=== PATIENT | female | born 1990 | race Caucasian/White ===

== ENCOUNTER → 2019-02-17 | Outpatient (CLI) | payer OTHER ==
--- NOTE | 2019-02-18 07:06 | US ---
EXAMINATION TYPE: US transvaginal DATE OF EXAM: 02/17/2019 COMPARISON: NONE CLINICAL HISTORY: N92.1 Excessive and frequent menstruation. TECHNIQUE: Transvaginal (TV). Date of LMP: 03/05/19 EXAM MEASUREMENTS: Uterus: 8.8 x 3.9 x 6.0 cm Endometrial Stripe: 0.4 cm Right Ovary: 5.3 x 4.2 x 4.1 cm Left Ovary: 2.9 x 2.5 x 1.5 cm 1. Uterus: Anteverted, fibroid measuring 1.4 x 1.3 x 1.6cm 2. Endometrium: wnl 3. Right Ovary: ovarian cyst with debris and possible solid component measuring 5.1 x 4.0 x 3.3cm 4. Left Ovary: wnl 5. Bilateral Adnexa: wnl 6. Posterior cul-de-sac: small amount of ff anterior to uterus IMPRESSION: 1. Leiomyomatous change of the uterus. 2. Complex right ovarian cystic lesion with debris and possible solid component. Follow-up in 6 weeks is advised as well as clinical correlation.
== END | disposition home or self-care (01) ==
LOC: RADUSWWP 16:06
PROVIDERS: ATTEND Family Medicine
DX: N83.201 Unspecified ovarian cyst, right side (principal); D25.9 Leiomyoma of uterus, unspecified; N92.1 Excessive and frequent menstruation with irregular cycle
CPT/HCPCS: 76830

== ENCOUNTER → 2019-03-31 | Outpatient (CLI) | payer OTHER ==
--- NOTE | 2019-03-31 12:46 | US ---
EXAMINATION TYPE: US transvaginal DATE OF EXAM: 03/31/2019 COMPARISON: 02/17/2019 CLINICAL HISTORY: 28-year-old female N83.20 Unspecified ovarian cysts. Follow up right ovarian cyst, right pelvic pain, irregular cycles, 2, para 1, miscarriage 1, history of . TECHNIQUE: Transvaginal only per ordering physician. Date of LMP: 1 week ago FINDINGS: EXAM MEASUREMENTS: Uterus: 7.1 x 3.5 x 6.0 cm Endometrial Stripe: right horn 0.1cm, left horn 0.2cm Right Ovary: 3.6 x 1.8 x 1.7 cm Left Ovary: 6.3 x 3.7 x 3.9 cm 1. Uterus: Retroverted with 2 endometrial horns. Mildly heterogeneous myometrium, hypoechoic lesion seen on previous exam at the anterior fundus not seen on today's study 2. Endometrium: wnl 3. Right Ovary: multiple follicles 4. Left Ovary: 5.4 x 3.3 x 3.0cm cyst. 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 Previously m easured 5.1 x 4.0 x 3.3 cm. 5. Bilateral Adnexa: wnl 6. Posterior cul-de-sac: wnl IMPRESSION: 1. Left ovarian cyst redemonstrated currently measuring 5.4 x 3.3 cm versus 5.1 x 4.0 cm, previously. Overall, not significantly changed. Currently, there is suggestion of an internal cumulus oophorus s uggesting a dominant follicle. However, it is unusual in that it has not involuted from the prior ex am. Additional 6-8 week follow-up recommended to reassess. 2. 2 endometrial horns. 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
== END | disposition home or self-care (01) ==
LOC: RADUSWWP 10:57
PROVIDERS: ATTEND Family Medicine
DX: N83.201 Unspecified ovarian cyst, right side (principal)
CPT/HCPCS: 76830

== ENCOUNTER → 2019-05-19 | Outpatient (CLI) | payer OTHER ==
--- NOTE | 2019-05-19 11:27 | US ---
EXAMINATION TYPE: US transvaginal DATE OF EXAM: 05/19/2019 COMPARISON: US 2019 CLINICAL HISTORY: N83.29 OVARIAN CYSTS,N92.1 EXCESSIVE FREQ MENSES. Follow up ovarian cysts, right pe lvic pain, irregular cycles, 2, para 1, miscarriage 1, history of . TECHNIQUE: Transvaginal exam only per ordering physician. Date of LMP: Patient unsure of LMP EXAM MEASUREMENTS: Uterus: 7.4 x 3.9 x 6.4 cm Endometrial Stripe: 1.8 cm Right Ovary: 4.6 x 2.2 x 2.1 cm Left Ovary: 4.3 x 2.2 x 2.2 cm 1. Uterus: retroverted with 2 endometrial horns, mildly heterogeneous without any definite lesions s een at this time 2. Endometrium: wnl 3. Right Ovary: multiple follicles, multiple calcifications, 4. Left Ovary: multiple follicles, multiple calcifications 5. Bilateral Adnexa: wnl 6. Posterior cul-de-sac: small amount of free fluid Transverse images show deviated endometrial canals possible arcuate type uterus similar to prior. Tin y amount free fluid in pelvic cul-de-sac. Both ovaries are seen. Multiple prominent follicles identified bilaterally. Interval resolution of la rge cystic lesion left ovary. IMPRESSION: Interval resolution of large cystic lesion left ovary. Multiple follicles redemonstrated bilaterally.
== END | disposition home or self-care (01) ==
LOC: RADUSWWP 09:28
PROVIDERS: ATTEND Family Medicine
DX: N83.209 Unspecified ovarian cyst, unspecified side (principal); N92.1 Excessive and frequent menstruation with irregular cycle
CPT/HCPCS: 76830

== ENCOUNTER 2019-06-22 07:02 | Day surgery (SDC) | payer OTHER ==
[2019-06-21 08:34] VITALS: BMI 32.9
[~2019-06-22 07:02] MED LIST: DEXAMETHASONE SOD PHOSPHATE 10 MG/ML 1 ML VIAL IV ONE; LACTATED RINGERS 1,000 ML IV SCH; LIDOCAINE 1% 20 ML VIAL (10MG/ML) FOR IV START INTRADERMA PRN; MIDAZOLAM 2 MG/2 ML VIAL IV PRN; ONDANSETRON 4 MG/2 ML VIAL IVP ONE; Pre Op ABX Message 1 EACH MISC MISCELLANE ONE; SCOPOLAMINE 1.5MG/72HR PATCH TRANSDERM ONE
[2019-06-22 07:32] LABS: Basophils # (A) 0.1 k/uL (0-0.2); Basophils % (A) 1 %; Eosinophils # (A) 0.2 k/uL (0-0.7); Eosinophils % (A) 2 %; HCT 40.9 % (34.0-46.0); Lymphocytes # (A) 2.4 k/uL (1.0-4.8); Lymphocytes % (A) 30 %; MCH 32.7 pg (25.0-35.0); MCHC 34.3 g/dL (31.0-37.0); MCV 95.3 fL (80.0-100.0); Mean Platelet Volume 7.5; Monocytes # (A) 0.4 k/uL (0-1.0); Monocytes % (A) 5 %; Neutrophils # (A) 4.9 k/uL (1.3-7.7); Neutrophils % (A) 61 %; Platelet Count 335 k/uL (150-450); RBC 4.29 m/uL (3.80-5.40); RDW 12.9 % (11.5-15.5)
[2019-06-22] MEDS ORDERED: BUPIVACAINE (PF) 0.25% 30 ML VIAL SQ ONE (07:41)
--- NOTE | 2019-06-22 07:55 | P.HPOB ---
History of Present Illness H&P Date: 06/22/19 Chief Complaint: irreg menses. family planning 29 year old presents for laparoscopic tubal ligation, possible aspiration of ovarian cyst and nexplanon removal. Review of Systems All systems: negative Constitutional: Denies chills, Denies fever Eyes: denies blurred vision, denies pain Ears, nose, mouth and throat: Denies headache, Denies sore throat Cardiovascular: Denies chest pain, Denies shortness of breath Respiratory: Denies cough Gastrointestinal: Denies abdominal pain, Denies diarrhea, Denies nausea, Denies vomiting Genitourinary: Denies dysuria, Denies hematuria Musculoskeletal: Denies myalgias Integumentary: Denies pruritus, Denies rash Neurological: Denies numbness, Denies weakness Psychiatric: Denies anxiety, Denies depression Endocrine: Denies fatigue, Denies weight change Past Medical History Past Medical History: No Reported History Additional Past Medical History / Comment(s): OB history: one SAB, one C/S History of Any Multi-Drug Resistant Organisms: None Reported Past Surgical History: Section Past Anesthesia/Blood Transfusion Reactions: No Reported Reaction Smoking Status: Current every day smoker - Past Family History Mother Family Medical History: No Reported History Father Family Medical History: Cancer Additional Family Medical History / Comment(s): esophagus Medications and Allergies Home Medications Medication Instructions Recorded Confirmed Type No Known Home Medications 02/06/15 06/22/19 History Allergies Allergy/AdvReac Type Severity Reaction Status Date / Time No Known Allergies Allergy Verified 06/22/19 07:16 Exam Osteopathic Statement: *. No significant issues noted on an osteopathic structural exam other than those noted in the History and Physical/Consult. Vital Signs Temp Pulse Resp BP Pulse Ox 06/22/19 07:21 97. F L 73 16 127/80 93 L Heart: RRR Lungs: CTAB Abdomen: soft, nontender Extremeties: neg shannon's Results Result Diagrams: 06/22/19 07:24 Assessment and Plan (1) Family planning Current Visit: Yes Status: Acute Code(s): Z30.09 - ENCOUNTER FOR OTH GENERAL CNSL AND ADVICE ON CONTRACEPTION SNOMED Code(s): 921882814 Plan: 1. laparoscopic tubal ligation, removal of nexplanon, possible aspiration of ovarian cyst.
[2019-06-22] MEDS ORDERED: KETOROLAC 30 MG/ML 1 ML VIAL ONE (08:01)
[2019-06-22] MEDS ORDERED: fentaNYL (PF) 50 MCG/ML 2 ML AMP ONE (08:01)
[2019-06-22] MEDS ORDERED: PROPOFOL 10 MG/ML 20 ML VIAL IV ONE (08:01)
[2019-06-22] MEDS ORDERED: GLYCOPYRROLATE 0.2 MG/ML 2 ML VIAL ONE (08:01)
[2019-06-22] MEDS ORDERED: ROCURONIUM BROMIDE 10 MG/ML 10 ML VIAL IV ONE (08:01)
[2019-06-22] MEDS ORDERED: SUCCINYLCHOLINE CHLORIDE 100 MG/5 ML SYR IV ONE (08:01)
[2019-06-22] MEDS ORDERED: HYDROmorphone (PF) 1 MG/ML ONE (08:01)
[2019-06-22] MEDS ORDERED: NEOSTIGMINE 1 MG/ML 10 ML VIAL ONE (08:01)
[2019-06-22] MEDS ORDERED: LIDOCAINE 1% INJ 10MG/ML (20 ML MDV) ONE (08:01)
[2019-06-22] MEDS ORDERED: MIDAZOLAM 2 MG/2 ML VIAL ONE (08:01)
--- NOTE | 2019-06-22 08:09 | P.OP ---
Date of Procedure: 06/22/19 Preoperative Diagnosis: 1. Family Planning 2. Irregular bleeding on Nexplanon Postoperative Diagnosis: 1. Family Planning 2. Irregular bleeding on Nexplanon 3. left paratubal cyst Procedure(s) Performed: Laparoscopic tubal ligation, cauterization of left paratubal cyst, removal of nexplanon Anesthesia: TYLER Surgeon: Alina Menezes Estimated Blood Loss (ml): 5 IV fluids (ml): 500 Urine output (ml): 20 Pathology: none sent Condition: stable Disposition: PACU Operative Findings: Normal uterus, normal fallopian tubes except for one small left paratubal cysts, normal ovaries. Description of Procedure: Patient was taken to the operating room where general anesthesia was obtained without difficulty. She was prepped and draped in normal sterile fashion in the dorsal lithotomy position, legs placed in the Flynn stirrups. Bladder drained of all urine. Brandon speculum placed in the vagina and the anterior lip the cervix was grasped with single-tooth tenaculum. The uterus is sounded to 8 cm and the kroner manipulator was placed. Attention was then turned to the abdomen and gloves were changed. A 10 mm infraumbilical incision was made the scalpel and 10 mm optical trocar was placed under direct visualization. A 5 mm suprapubic Incision was made and a 5 mm optical trocar was placed under direct visualization. Survey of the pelvis revealed normal uterus tubes and ovaries. There was a small paratubal cyst on the left fallopian tube. The left fallopian tube was grasped with a Kleppinger and fulgurated 2-3 cm on this side in the ampullar portion. I also took care to cauterize the area with the paratubal cyst to ensure that it would drain. The right fallopian tube was grasped with a Kleppinger and fulgurated 2-3 cm in the ampullar portion. All instruments were then removed from the abdomen and vagina. The 10 mm infraumbilical incision was closed with 0 Vicryl and the fascial layer and then 4-0 Vicryl in a subcuticular fashion. The 5 mm incision was closed with 4-0 Vicryl in a subcuticular fashion. Attention was then turned to the patient's right arm where the Nexplanon was identified. This area had been prepped and draped as well. 1 mL of cord percent Marcaine was injected subdermally. A 15 blade was used to make a tiny incision. The Nexplanon was delivered through the incision and grasped with a hemostat and easily removed. Band-Aid was placed over the incision. Patient tolerated procedure well, sponge and instrument counts correct 2 and she was taken to recovery room in stable condition.
[2019-06-22 09:06] VITALS: TEMP 97.2
[2019-06-22] MEDS: HYDROmorphone 0.5 MG/0.5 ML SYRINGE IVP PRN ×2 (09:14→09:22)
[2019-06-22 09:40] VITALS: RESP 16
[2019-06-22] MEDS ORDERED: LACTATED RINGERS 1,000 ML IV ONE (09:48)
[2019-06-22 10:15] VITALS: BP 116/74; PULSE 67
== END 2019-06-22 10:38 | disposition home or self-care (01) ==
LOC: OR 07:02
PROVIDERS: ATTEND Obstetrics & Gynecology
DX: N83.8 Other noninflammatory disorders of ovary, fallopian tube and broad ligament (principal); Z30.2 Encounter for sterilization; N92.6 Irregular menstruation, unspecified; Z30.46 Encounter for surveillance of implantable subdermal contraceptive; F17.200 Nicotine dependence, unspecified, uncomplicated; Z80.0 Family history of malignant neoplasm of digestive organs
CPT/HCPCS: 58670; 11982; 81025; 85025; J2250; J1100; J2710; J2405; J2001; J3010; J1885; J1170 ×2; J0330; J2704

== ENCOUNTER 2022-10-30 11:33 | Emergency (ER) | payer OTHER ==
[2022-10-30 11:46] VITALS: TEMP 98
[2022-10-30] MEDS ORDERED: ACETAMINOPHEN TAB 325 MG TAB PO STA (11:55)
[2022-10-30] MEDS ORDERED: IBUPROFEN 600 MG TAB PO STA (11:55)
--- NOTE | 2022-10-30 11:58 | ED ---
Lower Extremity Injury HPI - General Chief Complaint: Extremity Injury, Lower Stated Complaint: Ankle injury Time Seen by Provider: 10/30/22 11:47 Source: patient, family, RN notes reviewed, old records reviewed Mode of arrival: wheelchair Limitations: no limitations - History of Present Illness Initial Comments: 32-year-old well-appearing female presents emergency room with complaints of right ankle pain. She states that 2 AM last night she had been drinking and rolled her ankle on a step. She went to bed and woke up this morning with increased pain and swelling. She is here for an x-ray to make sure there is no fracture. Did not take any Tylenol or Motrin prior to arrival. She is a daily smoker. MD Complaint: ankle injury (right) -: hour(s) (10) Type of Injury: other (rolled it at 0200 off step) Severity scale (1-10): 8 Improves With: immobilization Associated Symptoms: able to partially bear weight - Related Data Previous Rx's Medication Instructions Recorded HYDROcodone/APAP 5-325MG [[place] 1 tab PO Q4HR PRN #12 tab 06/22/19 5-325] Ibuprofen [Motrin] 600 mg PO Q6HR PRN #30 tab 06/22/19 Ibuprofen [Motrin] 600 mg PO Q8HR PRN #30 tab 10/30/22 Allergies Allergy/AdvReac Type Severity Reaction Status Date / Time No Known Allergies Allergy Verified 06/22/19 07:16 Review of Systems ROS Statement: Those systems with pertinent positive or pertinent negative responses have been documented in the HPI. ROS Other: All systems not noted in ROS Statement are negative. Past Medical History Past Medical History: No Reported History Additional Past Medical History / Comment(s): OB history: one SAB, one C/S History of Any Multi-Drug Resistant Organisms: None Reported Past Surgical History: Section Past Psychological History: No Psychological Hx Reported Past Alcohol Use History: None Reported Past Drug Use History: None Reported General Exam Limitations: no limitations General appearance: alert, in no apparent distress Head exam: Present: atraumatic Eye exam: Absent: scleral icterus, conjunctival injection, periorbital swelling Neck exam: Absent: meningismus Respiratory exam: Present: normal lung sounds bilaterally. Absent: respiratory distress, accessory muscle use Cardiovascular Exam: Present: regular rate Right Ankle exam: Present: tenderness, swelling. Absent: full ROM, abrasion, laceration, ecchymosis, deformity, crepitus, dislocation, erythema Neurovascular tendon exam: Present: no vascular compromise. Absent: abnormal cap refill, extremity cold to touch, pallor, foot drop, peroneal nerve deficit Neurological exam: Present: alert, oriented X3 Psychiatric exam: Present: normal affect, normal mood Skin exam: Present: warm, dry, normal color. Absent: cyanosis, diaphoretic, petechiae, pallor Course Vital Signs 10/30/22 10/30/22 11:44 12:48 Temperature 98 F Pulse Rate 70 80 Respiratory 16 18 Rate Blood Pressure 144/84 115/69 O2 Sat by Pulse 98 98 Oximetry Medical Decision Making - Medical Decision Making X-ray left ankle interpreted by me shows no acute fracture or dislocation. Radiologist interpretation no acute osseous pathology. No evidence of acute fracture. Subcutaneous swelling around the ankle likely to the underlying soft tissue injury. Capillary refill less than 2 seconds. Patient intact. Dorsal pedal pulses present. Patient was placed in an ankle stirrup directed to rest ice elevate take Tylenol Motrin for pain and discomfort. Follow-up with primary care doctor or orthopedics next week. Case discussed with Dr. Zafar Was pt. sent in by a medical professional or institution? @ -no Did you speak to anyone other than the patient for history? @ -no Did you review nursing and triage notes? @ -yes i agree Were old charts reviewed? @ -no Differential Diagnosis? @ -Fracture, dislocation, sprain, this is not an all inclusive list X-rays interpreted by me (1pt min.)? @ -yes as above CT interpreted by me (1pt min.)? @ -[none] U/S interpreted by me (1pt. min.)? @ -[none] What testing was considered but not performed? (CT, X-rays, U/S, labs)? Why? @ no What meds were considered but not given? Why? @ -no Did you discuss the management of the patient with other professionals? @ -no Did you reconcile home meds? @ -no Was smoking cessation discussed for >3mins.? @ -[none] Was critical care preformed (if so, how long)? @ -no Were there social determinants of health that impacted care today? How? (Homelessness, low income, unemployed, alcoholism, drug addiction, transpor tation, low edu. Level, literacy, decrease access to med. care, fci, rehab)? @ -none Was there de-escalation of care discussed even if they declined? (Discuss DNR or withdrawal of care, Hospice)? @ -no What co-morbidities impacted this encounter? (DM, HTN, Smoking, COPD, CAD, Cancer, CVA, Hep., AIDS, mental health diagnosis, sleep apnea, morbid obesity)? @ -none Was patient admitted / discharged? @ -discharged Undiagnosed new problem with uncertain prognosis? @ -[none] Drug Therapy requiring intensive monitoring for toxicity (Heparin, Nitro, Insulin, Cardizem)? @ -no Were any procedures done? @ -no Diagnosis/symptom? @ -Ankle sprain Acute, or Chronic, or Acute on Chronic? @ -acute Uncomplicated (without systemic symptoms) or Complicated (systemic symptoms)? @ -Uncomplicated Side effects of treatment? @ -[none] Exacerbation, Progression, or Severe Exacerbation] @ -[no] Poses a threat to life or bodily function? @ -[no] Disposition Clinical Impression: Right ankle sprain Disposition: HOME SELF-CARE Condition: Good Instructions (If sedation given, give patient instructions): Ankle Sprain (ED) Additional Instructions: Rest, ice, elevate and wear ankle support until pain relieved. Tylenol and Motrin as needed for pain, swelling or discomfort. Follow-up with primary care doctor or orthopedics next week. Prescriptions: Ibuprofen [Motrin] 600 mg PO Q8HR PRN #30 tab PRN Reason: Pain Is patient prescribed a controlled substance at d/c from ED?: No Referrals: Aishwarya Jones MD [Primary Care Provider] - 1-2 days Jacobo Allred MD [Medical Doctor] - 1-2 days Time of Disposition: 12:30
--- NOTE | 2022-10-30 12:25 | XR ---
EXAMINATION TYPE: XR ankle complete RT DATE OF EXAM: 10/30/2022 12:21 PM INDICATION: Patient age:Female; 32 years old; Reason for study: rolled, pain; COMPARISON: None TECHNIQUE: The right ankle is imaged in frontal, lateral and oblique projections. FINDINGS: There is no evidence of acute osseous pathology. The joint spaces are well-preserved without evidenc e of subluxation or dislocation. Kager's fat pad is intact. Mild soft tissue swelling around the ankl e. No radiopaque foreign bodies are identified. IMPRESSION: 1. No evidence of acute fracture. 2. Subcutaneous swelling around the ankle likely secondary to underlying soft tissue injury.
[2022-10-30 12:50] VITALS: BP 115/69; PULSE 80; RESP 18
== END 2022-10-30 12:50 | disposition home or self-care (01) ==
LOC: EC 11:33
DX: S93.401A Sprain of unspecified ligament of right ankle, initial encounter (principal); W10.9XXA Fall (on) (from) unspecified stairs and steps, initial encounter
CPT/HCPCS: 99283

== ENCOUNTER → 2023-03-19 | Outpatient (CLI) | payer OTHER ==
--- NOTE | 2023-03-19 18:40 | US ---
EXAMINATION TYPE: US pelvic complete DATE OF EXAM: 03/19/2023 COMPARISON: - US CLINICAL INDICATION: Female, 32 years old with history of N92.6 IRREGULAR MENSES; painful intercourse , right adnexal pain TECHNIQUE: Transabdominal (TA). Transabdominal sonographic images of the pelvis were acquired. EXAM MEASUREMENTS: Uterus: 9.4 x 3.9 x 6.5 cm Endometrial Stripe: 1.2 cm Right Ovary: 3.3 x 2.6 x 1.9 cm Left Ovary: 3.8 x 2.6 x 2.0 cm 1. Uterus: Anteverted wnl 2. Endometrium: upper limits in size 3. Right Ovary: wnl 4. Left Ovary: wnl 5. Bilateral Adnexa: wnl 6. Posterior cul-de-sac: wnl 7. There is fluid within the vaginal canal. Likely relating to menstruation. IMPRESSION: 1. No evidence for acute pelvic process. 2. Endometrium is within normal limits for thickness. 3. No adnexal masses. If this concern for endometriosis consider MRI pelvis with IV contrast.
== END | disposition home or self-care (01) ==
LOC: RADUSWWP 14:54
PROVIDERS: ATTEND Family Medicine
DX: N92.6 Irregular menstruation, unspecified (principal)
CPT/HCPCS: 76856

== ENCOUNTER → 2025-03-17 | Outpatient (CLI) | payer BC ==
[2025-03-17 19:04] LABS: Basophils # (A) 0.05 X 10*3/uL (0.00-0.10); Basophils % (A) 0.7 %; Eosinophils # (A) 0.15 X 10*3/uL (0.04-0.35); Eosinophils % (A) 2.1 %; HCT 37.2 % (37.2-46.3); HGB 11.8 g/dL (12.0-15.0); Lymphocytes # (A) 1.64 X 10*3/uL (0.90-5.00); Lymphocytes % (A) 23.3 %; MCH 30.3 pg (27.0-32.0); MCHC 31.7 g/dL (32.0-37.0); MCV 95.4 FL (80.0-97.0); Mean Platelet Volume 11.3 FL (9.5-12.2); Monocytes # (A) 0.52 X 10*3/uL (0.20-1.00); Monocytes % (A) 7.4 %; NRBC Per 100 WBC 0 X 10*3/uL (0.00-0.01); Neutrophils # (A) 4.65 X 10*3/uL (1.80-7.70); Neutrophils % (A) 66.2 %; Platelet Count 368 X 10*3/uL (140-440); WBC 7.03 X 10*3/uL (4.50-10.00)
== END | disposition home or self-care (01) ==
LOC: LABPAT 11:41
PROVIDERS: ATTEND Obstetrics & Gynecology
DX: Z01.812 Encounter for preprocedural laboratory examination (principal); R10.2 Pelvic and perineal pain
CPT/HCPCS: 85025

== ENCOUNTER 2025-03-23 07:26 | Day surgery (SDC) | payer BC, OTHER ==
[2025-03-21 14:49] VITALS: BMI 29.5
[2025-03-23] MEDS ORDERED: HYDROmorphone 0.5 MG/0.5 ML SYRINGE IVP PRN (07:48)
[2025-03-23] MEDS ORDERED: SCOPOLAMINE 1 MG/72 HR PATCH TRANSDERM ONE (07:48)
[2025-03-23] MEDS ORDERED: LIDOCAINE 1% (10MG/ML) FOR IV START INTRADERMA PRN (07:48)
[2025-03-23] MEDS: IV FLUID CONTINUATION 1,000 ML IV ONE (07:48)
[2025-03-23 07:56] VITALS: TEMP 97.1
[2025-03-23] MEDS: DEXAMETHASONE SOD PHOSPHATE 4 MG/ML 1 ML VIAL IV ONE (08:11)
[2025-03-23] MEDS: ONDANSETRON 4 MG/2 ML VIAL IVP ONE (08:11)
[2025-03-23] MEDS: LACTATED RINGERS 1,000 ML IV SCH (08:12)
[2025-03-23] MEDS: MIDAZOLAM 2 MG/2 ML VIAL IV STA (08:24)
[2025-03-23] MEDS ORDERED: fentaNYL (PF) 50 MCG/ML 2 ML AMP ONE (09:06)
[2025-03-23] MEDS ORDERED: KETOROLAC 15 MG/ML 1 ML VIAL ONE (09:06)
[2025-03-23] MEDS ORDERED: GLYCOPYRROLATE 0.2 MG/ML 2 ML VIAL ONE (09:06)
[2025-03-23] MEDS ORDERED: PROPOFOL 10 MG/ML 20 ML VIAL IV ONE (09:06)
[2025-03-23] MEDS ORDERED: SUCCINYLCHOLINE CHLORIDE 200 MG/10 ML VIAL IV ONE (09:06)
[2025-03-23] MEDS ORDERED: ROCURONIUM 10 MG/ML (5 ML VIAL) IV ONE (09:06)
[2025-03-23] MEDS ORDERED: HYDROmorphone (PF) 1 MG/ML ONE (09:06)
[2025-03-23] MEDS ORDERED: ONDANSETRON 4 MG/2 ML VIAL ONE (09:06)
[2025-03-23] MEDS ORDERED: NEOSTIGMINE 1 MG/ML 10 ML VIAL ONE (09:06)
[2025-03-23] MEDS ORDERED: LIDOCAINE 1% INJ 10MG/ML (20 ML MDV) ONE (09:06)
[2025-03-23] MEDS: ceFAZolin 2 GM in DEXTROSE 5% IN WATER 50 ML IVPB PRN (09:11)
[2025-03-23] MEDS: BUPIVACAINE (PF) 0.25% 30 ML VIAL SQ ONE ×2 (09:40→10:39)
--- NOTE | 2025-03-23 10:58 | P.OP ---
Date of Procedure: 03/23/25 Preoperative Diagnosis: Chronic Pelvic Pain Postoperative Diagnosis: Endometriosis (Stage II) Procedure(s) Performed: Diagnostic Laparoscopy, Resection of Endometriosis, Fulguration of Endometriosis Implants: None Anesthesia: KEESHAA Surgeon: Sara Cooper Estimated Blood Loss (ml): 25 IV fluids (ml): 500 Urine output (ml): 500 Pathology: other (peritoneal biopsy) Condition: stable Disposition: floor Indications for Procedure: Ms. Carrasco is a 34 year old who presents for Diagnostic Laparoscopy, Possible Resection of Endometriosis, Possible Oophorectomy, Possible Lapartomy for chronic pelvic pain. Risks, benefits, and alternatives are discussed with the patient including risk of bleeding, infection, damage to surrounding structures including bowel/bladder/ureters/ovaries, and post-operative VTE. The patient understands these risks and desires to proceed with surgery as discussed. Operative Findings: Stage II endometriosis with deep peritoneal implants, superficial anterior and posterior culdesac implants, superficial implants on the uterosacral ligaments and small chocolate cysts on the ovaries. Some small implants also noted noted on the bowel. No obliteration of the culdesacs. Patient would be a good candidate for robotic surgery if she needs to go back to the OR. Description of Procedure: Patient was taken to the OR with IV fluid running and pneumatic compression stockings on both legs. General anesthesia was obtained without difficulty. The patient was placed in the dorsal lithotomy position with Flynn-type stirrups with knees bent at 30 degree angles. Examination under anesthesia revealed a normal-sized, anteverted uterus. The patient as prepared and draped. The bladder was emptied. A speculum was placed into the vagina. The anterior lip of the cervix was grasped with a single-toothed tenaculum. A uterine manipulator was introduced. A horizontal skin incision was made at the umbilical fold. The periumbilical skin was manually elevated. The Veress needle was introduced into the peritoneal cavity at a straight angle without difficulty. A saline drop test was performed to validate intraperitoneal placement. The pneumoperitoneum was established with CO2 gas to a pressure of 15mmHg. A 5mm trocar was inserted into the abdomen under direct laparoscopic visualization. Intraabdominal survey revealed lack of any visceral or vascular injury. The pelvic and abdominal anatomy was noted as above. Two additional laparoscopic assit ports were placed in the right and left lower quadrants. A grasper was used to mushroom picker the peritoneum on the right lateral side wall and a large section of the peritoneum with deep endometrial implants was resected. This process was repeated on the left side. More superficial implants near the anterior and posterios cul-de-sacs, on the posterior uterus, and uterosacral ligaments were fulgurated with cautery. Surgicel Powder was used in the areas of peritoneal resection. The peritoneal biopsies were removed from the abdomen with a specimen catch abg. Excellent hemostasis was noted at the end of the case. The patient tolerated the procedure well. All instruments were removed from the abdomen and vagina, and all counts were correct times two. Incisions were closed with 4-0 Monocryl and skin glue. The patient was taken to the recovery room in stable condition.
[2025-03-23 12:59] VITALS: RESP 16
[2025-03-23 13:14] VITALS: BP 121/81; PULSE 69
== END 2025-03-23 13:41 | disposition home or self-care (01) ==
LOC: OR 07:26
PROVIDERS: ATTEND Obstetrics & Gynecology
DX: N80.30 Endometriosis of pelvic peritoneum, unspecified (principal); G89.29 Other chronic pain
CPT/HCPCS: 81025; 58662; 49321; J2250; J0330; J1100; J2710; J0690; J2405; J2003; J3010; J1171; J1885; J2704; J0665; J1596; 88305